=== PATIENT | male | born 1990 | race Caucasian/White ===

== ENCOUNTER 2020-09-19 15:57 | Inpatient (IN) ==
[2020-09-19 16:55] LABS: Basophils # 0.1 K/mcL (0.0-0.2); Basophils % 0.8 %; Eosinophils # 0.3 K/mcL (0.0-0.6); Eosinophils % 2.4 %; Hematocrit 51.9 % (37.5-50.1); Hemoglobin 16.9 g/dL (12.9-16.9); Immature Granulocytes % 0.9 % (0-4); Lymphocytes % 16.9 %; Mean Corpuscular HGB Conc 32.6 g/dL (31.6-35.5); Mean Platelet Volume 8.5 fL (9.4-12.4); Monocytes # 1.1 K/mcL (0.0-1.3); Monocytes % 9.5 %; Neutrophils # 8.1 K/mcL (1.6-8.9); Platelet Count 344 K/mcL (140-400); Red Blood Count 5.83 M/mcL (4.19-5.50); Red Cell Distribution Width 12.5 % (11.5-14.5); Segmented Neutrophils % 69.5 %; White Blood Count 11.6 K/mcL (4.3-11.1)
[2020-09-19 16:55] LABS: Bilirubin,Urine Negative (Negative); Blood,Urine Negative (Negative); Clarity,Urine Clear (Clear); Color,Urine Light-Yellow (Yellow); Glucose,Urine (UA) Normal (Normal); Ketones,Urine Negative (Negative); Leukocyte Esterase,Urine Negative (Negative); Nitrite,Urine Negative (Negative); PH,Urine 7.5 pH Units (5.0-8.0); Protein,Urine Trace mg/dL (Neg-Trace); Specific Gravity,Urine 1.018 (1.010-1.025); Urobilinogen,Urine Normal (Normal)
[2020-09-19 17:19] LABS: BUN/Creatinine Ratio 10 (6-26); Blood Urea Nitrogen 10 mg/dL (6-20); Carbon Dioxide 26 mEq/L (23-29); Chloride 103 mEq/L (98-107); Chol/HDL Ratio 6.4 (0-4.9); Cholesterol 174 mg/dL (< 200); Glucose 91 mg/dL (70-105); HDL Cholesterol 27 mg/dL (40-59); Osmolality,Calculated 285 (280-300); Potassium 3.8 mEq/L (3.5-5.1); Sodium 138 mEq/L (136-145); Triglycerides 251 mg/dL (< 150); eGFR For African Americans > 60 (> 60); eGFR For Non-African Americans > 60 (> 60)
[2020-09-19 17:20] LABS: Acetaminophen < 10 mcg/mL (10-20); Ethanol < 10 mg/dL (Less than 10); LDL Cholesterol,Calculated 97 mg/dL (< 100); Salicylate < 2.5 mg/dL (15.0-30.0)
[2020-09-19 17:25] LABS: Amphetamine Screen,Urine Negative ng/mL (Cutoff=1000); Barbiturate Screen,Urine Negative ng/mL (Cutoff=200); Benzodiazepines Screen,Urine Negative ng/mL (Cutoff=200); Cannabinoid Screen,Urine Positive ng/mL (Cutoff = 50); Cocaine Screen,Urine Negative ng/mL (Cutoff= 300); Opiate Screen,Urine Negative ng/mL (Cutoff=300); Phencyclidine Screen,Urine Negative ng/mL (Cutoff=25)
[2020-09-19 17:37] LABS: Estimated Average Glucose 100 mg/dl; Hemoglobin A1C 5.1 %
[2020-09-19] MEDS ORDERED: *HR* LORazepam 2 MG/ML VIAL IM PRN (19:11)
[2020-09-19] MEDS ORDERED: Haloperidol Lactate 5 MG/ML VIAL IM PRN (19:11)
[2020-09-19] MEDS ORDERED: MOM Conc 10 ML UD.LIQ PO PRN (19:11)
[2020-09-19] MEDS ORDERED: haloperidoL 5 MG TABLET PO PRN (19:11)
[2020-09-19] MEDS ORDERED: Mag Hydrox/Al Hydrox/Simeth 30 ML UDC PO PRN (19:11)
[2020-09-19] MEDS ORDERED: *HR* LORazepam 1 MG TABLET PO PRN (19:11)
[2020-09-19] MEDS: hydrOXYzine pamoate 25 MG CAPSULE PO PRN (21:50)
[2020-09-19] MEDS: traZODone 50 MG TABLET PO PRN (21:50)
[2020-09-20] MEDS: Nicotine 21 MG PATCH.TD24 TD SCH (08:34)
[2020-09-20] MEDS: hydrOXYzine pamoate 25 MG CAPSULE PO PRN ×2 (14:19→20:50)
[2020-09-20] MEDS: Acetaminophen 325 MG TABLET PO PRN (20:49)
[2020-09-20] MEDS: traZODone 50 MG TABLET PO PRN (20:50)
[2020-09-21] MEDS: Nicotine 21 MG PATCH.TD24 TD SCH (09:04)
[2020-09-21] MEDS: hydrOXYzine pamoate 25 MG CAPSULE PO PRN ×2 (09:07→21:22)
[2020-09-21] MEDS: Acetaminophen 325 MG TABLET PO PRN (21:21)
[2020-09-21] MEDS: traZODone 50 MG TABLET PO PRN (21:22)
[2020-09-22] MEDS: hydrOXYzine pamoate 25 MG CAPSULE PO PRN (08:42)
[2020-09-22 09:10] VITALS: BP 144/83
[2020-09-22] MEDS: Nicotine 21 MG PATCH.TD24 TD SCH (10:09)
== END 2020-09-22 09:55 | disposition home or self-care (01) | DRG 885 ==
LOC: EMEROOARM 15:57 → 1ANU 18:17
PROVIDERS: ADMIT Psychiatry & Neurology Psychiatry; ATTEND Psychiatry & Neurology Psychiatry